=== PATIENT | female | born 1950 | race Caucasian/White ===

== ENCOUNTER → 2018-04-15 | Outpatient (CLI) | payer MEDICARE ==
[~2018-04-15] MED LIST: LORAZEPAM INJ 2 MG/ML VIAL ONE
[2018-04-15 09:15] LABS: CREATININE, SERUM 1.43 mg/dL (0.57-1.11)
--- NOTE | 2018-04-15 11:10 | Diagnostic Imaging Report ---
EXAMINATION: MRI of the brain without contrast. HISTORY: Severe headaches, increased frequency COMPARISON: None. TECHNIQUE: Sagittal T2; axial DWI, T2, FLAIR, T1-IR, T2 gradient echo; coronal FLAIR. Additional high resolution T2 fiesta in the posterior fossa. IMAGE QUALITY: Adequate. FINDINGS: Parenchyma: 1. A few white matter T2 and FLAIR hyperintense foci, likely age-appropriate nonspecific minimal chronic microvascular ischemic changes. 2. Approximately 6 mm T1 heterogeneous signal intensity (popcorn appearance), T2 and GRE hypointense lesion in the right posterior/lateral occipital lobe juxtacortical region, consistent with a small cavernous malformation. No surrounding edema or mass effect at this time. 3. No mass, hemorrhage, acute or chronic infarcts. IACs/labyrinth/CPA cistern: No mass or abnormal signal intensity. Skull: Unremarkable. Vessels: Poor visualization of the right petrous and lacerum segment of the right internal carotid artery, which may be related to volume averaging artifact, since there is otherwise normal flow within the cavernous and distal supraclinoid ICA. Otherwise normal- expected flow voids present in the major arteries and dural sinuses. Extra-axial spaces: No abnormal signal intensity or mass effect. Brain volume: Within normal limits for age. Ventricles: No hydrocephalus or displacement. Foramen magnum: Unremarkable. Sella: Unremarkable. Paranasal / mastoid sinuses: No significant inflammatory disease. IMPRESSION: 1. Small right occipital cavernous malformation. 2. Poor visualization of the right petrous/lacerum ICA, which may be related to volume averaging artifact. Signed by: Dr. Bindu Tello M.D. on 04/15/2018 11:06 AM
== END ==
LOC: MRI 07:07
PROVIDERS: ATTEND Psychiatry & Neurology Neurology
DX: R51 Headache (principal); H91.90 Unspecified hearing loss, unspecified ear; R42 Dizziness and giddiness; R41.0 Disorientation, unspecified; Q28.3 Other malformations of cerebral vessels; R93.0 Abnormal findings on diagnostic imaging of skull and head, not elsewhere classified
CPT/HCPCS: 36415; 70551; 82565; 84520; J2060